=== PATIENT | male | born 1940 | race Caucasian/White ===

== ENCOUNTER → 2025-04-09 | Outpatient (CLI) | payer MEDICARE, SELFPAY ==
--- NOTE | 2025-04-09 14:52 | RAD_ITS ---
PROCEDURE: CHEST PA AND LATERAL 04/09/2025 REASON FOR EXAM: SKIN/ PAIN TECHNIQUE: CHEST PA AND LATERAL COMPARISON: None. FINDINGS: Elevation of the left hemidiaphragm secondary to moderate gaseous distention of the splenic flexure of the colon. Bilateral basilar atelectatic pulmonary changes. There is no demonstrated pleural abnormality. Enlarged cardiac silhouette. Normal mediastinum and ino. Normal visualized pulmonary arteries. Atheromatous plaques of the visualized aortic arch and descending thoracic aorta. Diffuse spondylosis of the visualized thoracic spine. Normal visualized ribs, clavicles. Degenerative joint disease. There is no demonstrated abnormality of the visualized soft tissue structures of the upper abdomen. RAD/Chest PA and Lateral IMPRESSION: Elevation of the left hemidiaphragm secondary to moderate gaseous distention of the splenic flexure of the colon. Bilateral basilar atelectatic pulmonary changes. Reading [facility]
[2025-04-09 18:21] LABS: Absolute Lymphocyte Count 1.51 X10^3/uL (0.83-4.51); Absolute Neutrophil Count 5.4 X10^3/uL (2.0-7.7); Basophil# 0.05 X10^3/uL; Basophil% 0.6 % (0-1); Eosinophil# 0.16 X10^3/uL; Hematocrit 43.5 % (40-54); Hemoglobin 14.3 g/dL (13.0-16.5); Lymphocyte # 1.51 X10^3/ul (0.83-4.51); Lymphocyte % 19.1 % (19-41); Mean Corp Hgb Conc 32.9 g/dL (32-36); Mean Corpuscular Hgb 31.4 pg (27.0-32.0); Mean Corpuscular Volume 95.6 fL (80-94); Mean Platelet Vol. 9.3 fl (6.2-12.0); Monocyte# 0.81 X10^3/uL; Monocyte% 10.2 % (0-10); NRBC Flagged by Analyzer 0 % (0-5); Neutrophil # 5.36 X10^3/uL (2.7-7.7); Neutrophil % 67.7 % (47-70); Platelet Count 414 K/mm3 (150-450); RBC Distribution Width CV 12.9 % (11.6-14.6); RBC Distribution Width SD 45.6 fl (35.1-43.9); Red Blood Count 4.55 M/mm3 (4.6-6.2); White Blood Count 7.9 K/mm3 (4.4-11.0)
[2025-04-09 19:00] LABS: Color, Urine Yellow (Yellow); Glucose, Dipstick Normal (Normal); Ketone-Dipstick Negative (Negative); Leukocyte Esterase-Dipstick 25 /ul (Negative); Nitrite-Dipstick Negative (Negative); Occult Blood-Urine Negative /ul (Negative); Protein-Dipstick 30 mg/dl (Negative); Specific Gravity, Urine 1.025 (1.002-1.030); Urine Bilirubin Dipstick Negative (Negative); Urine Clarity Clear (Clear); Urine Urobilinogen Normal (Normal)
[2025-04-09 19:48] LABS: Erythrocyte Sedimentation Rate 14 mm/hr (0-20)
[2025-04-10 15:07] LABS: ALB/GLOB Ratio 1.6 RATIO (0.9-2.4); AST(SGOT) 25 U/L (<=37); Alanine Aminotransfer ALT/SGPT 21 U/L (<=46); Albumin, Serum 4.3 g/dL (3.4-4.8); Alkaline Phosphatase 69 U/L (40-129); Anion Gap 12 (5-15); BUN 13 mg/dL (4-19); BUN/Creat Ratio 14.9 RATIO (10-20); Calcium,Total 9.9 mg/dL (7.6-11.0); Carbon Dioxide 24.8 mmol/L (21.0-32.0); Chloride 100 mmol/L (98-108); Creatinine, Serum 0.86 mg/dL (0.70-1.20); EST Glomerular Filtration Rate 86 (>60); Globulin 2.7 g/dL (2.2-4.2); Glucose 110 mg/dL (70-99); Potassium 4.5 mmol/L (3.3-5.1); Protein, Total 7.1 g/dL (5.9-8.4); Sodium Level 136 mmol/L (133-145); Total Bilirubin 0.66 mg/dL (0.00-1.30)
[2025-04-10 15:56] LABS: PSA,Total- Diagnostic 0.91 ng/mL (0.00-4.00)
[2025-04-11 16:08] LABS: PROEL- A/G Ratio 1.4 (0.7-1.7); PROEL- Alpha-1 Globulin 0.3 g/dL (0.0-0.4); PROEL- Alpha-2 Globulin 0.8 g/dL (0.4-1.0); PROEL- Beta Globulin 0.9 g/dL (0.7-1.3); PROEL- Gamma Globulin 0.8 g/dL (0.4-1.8); PROEL- Globulin, Total 2.9 g/dL (2.2-3.9); PROEL- TOTAL PROTEIN 6.9 g/dL (6.0-8.5); PROEL-M-Spike Comment: g/dL (Not Observed); V-Zoster IgG (Immunity) Reactive (Non Reactive); V-Zoster Virus Acute IgM 2.17 index (0.00-0.90)
== END | disposition home or self-care (01) ==
LOC: MTLAB 14:50
PROVIDERS: Referring Provider Dermatology Pediatric Dermatology; Visit Provider Dermatology Pediatric Dermatology
DX: L08.9 Local infection of the skin and subcutaneous tissue, unspecified (principal); B02.7 Disseminated zoster
CPT/HCPCS: 36415; 71046; 80053; 81002; 84153; 84165; 85025; 85652; 86787

== ENCOUNTER → 2025-10-02 | Outpatient (CLI) | payer MEDICARE, SELFPAY ==
[2025-10-02 11:09] LABS: Creatinine, Urine (random) 152.00 mg/dL (39.00-259.00); Microalbumin,Random Urine 30.4 mg/L (<20 mg/L)
[2025-10-02 11:25] LABS: AST(SGOT) 20 U/L (<=37); Alanine Aminotransfer ALT/SGPT 17 U/L (<=46); Albumin, Serum 4.5 g/dL (3.4-4.8); Alkaline Phosphatase 55 U/L (40-129); Anion Gap 9 (5-15); BUN 18 mg/dL (4-19); BUN/Creat Ratio 17.5 RATIO (10-20); Calcium,Total 9.9 mg/dL (7.6-11.0); Carbon Dioxide 27.5 mmol/L (21.0-32.0); Chloride 103 mmol/L (98-108); Cholesterol 187 mg/dL (<=200); Globulin 2.3 g/dL (2.2-4.2); Glucose 102 mg/dL (70-99); Low Density Lipoprotein Calc. 103 mg/dL; Potassium 4.6 mmol/L (3.3-5.1); Triglycerides 146 mg/dL; Very Low Density Lipoprotein 29 mg/dL (5-40); cholesterol:hdl ratio screen 3.17
== END | disposition home or self-care (01) ==
LOC: MTLAB 07:51
PROVIDERS: PCP Family Medicine; Referring Provider Family Medicine; Visit Provider Family Medicine
DX: I10 Essential (primary) hypertension (principal)
CPT/HCPCS: 36415; 80053; 80061; 82043; 82570

== ENCOUNTER → 2025-10-15 | Outpatient (CLI) | payer MEDICARE, SELFPAY ==
--- OUTSIDE RECORDS SUMMARY | 2025-10-15 18:11 | XMS RPT_ITS | CCD ---
Author Organization [facility] Care Team Providers [employer] Professional Name Role Phone Free, Text Entry Unavailable Unavailable PhamAbdirahman lazcano Unavailable Unavailable Luba Polk DO Unavailable Haily Clark MD Primary Care Provider [phone] HAILY CLARK Primary Care Unavailable MANAN LLOYD Attending Unavailable Care Physician, No Primary Primary Care Provider Unavailable Sierra POND, Dr. Ortiz Attending Provider Dr. Diana Esquivel MD Referring Provider [phone] Diana Esquivel Referring Unavailable Diana Esquivel Attending Unavailable Care Physician, No Primary Primary Care Unava ilable Medications Current Medications Medication Drug Class(es) Dates Sig (Normalized) Sig (Original) atorvastatin 10 mg oral tablet (2 sources) HMG-CoA Reductase Inhibitor atorvastatin (Lipitor) 10 mg tablet Take by mouth. Active Comment on above: Source=Surescripts, Medication=ATORVASTATIN CALCIUM 10 MG TABS, OriginatingSource=[email or web address], OriginatingProvider=OJ HOU, Duration=90, Date Last Modified/Filled=20-Apr-2022 doxycycline monohydrate 100 mg oral tablet (1 source) Tetracycline-class Drug Start: 04-07-2025 End: 04-14-2025 take 1 tablet by mouth twice daily doxycycline (Adoxa) 100 mg tablet Indications: Cellulitis of left shoulder Take 1 tablet (100 mg) by mouth 2 times a day for 7 days. Take with a full glass of water and do not lie down for at least 30 minutes after 14 tablet 04/07/2025 04/14/2025 Active ibuprofen 800 mg oral tablet (1 source) Nonsteroidal Anti-inflammatory Drug Start: 04-21-2022 End: 04-30-2022 take 1 tablet by mouth twice daily at mealtime IBU 800 mg oral tablet ; 1 tab(s) orally 2 times a day Quantity: 20 Refills: 0 Ordered: 21-Apr-2022 Abdirahman Pham Start: 21-Apr-2022 End: 30-Apr-2022 Generic Substitution Allowed Comments: Do not take this drug if you are .It is very important that you take or use this exactly as directed. Do not skip doses or discontinue unless directed by your doctor.May cause drowsiness or dizziness.Obtain medical advice before taking any non-prescription drugs as some may affect the action of this medication.Take with food or milk. Comment on above: Do not take this enoch g if you are .It is very important that you take or use this exactly as directed. Do not skip doses or discontinue unless directed by your doctor.May cause drowsiness or dizziness.Obtain medical advice before taking any non-prescription drugs as some may affect the action of this medication.Take with food or milk. valACYclovir 1000 mg oral tablet (1 source) Herpesvirus Nucleoside Analog DNA Polymerase Inhibitor, Herpes Simplex Virus Nucleoside Analog DNA Polymerase Inhibitor, Herpes Zoster Virus Nucleoside Analog DNA Polymerase Inhibitor Start: 04-07-2025 End: 04-17-2025 take 1 tablet by mouth twice daily valACYclovir (Valtrex) 1 gram tablet Indications: Herpes zoster with other complication Take 1 tablet (1,000 mg) by mouth 2 times a day for 10 days. 20 tablet 04/07/2025 04/17/2025 Active Problems Problem Classification Problem Date Documented Da te Episodic/Chronic Nonspecific chest pain (2 sources) Chest pain 04-21-2022 Episodic Comment on above: CHEST PAIN Pleurisy; pneumothorax; pulmonary collapse (2 sources) Pleurisy; Translations: [Pleurisy without mention of effusion or current tuberculosis] 04-21-2022 Episodic Skin and subcutaneous tissue infections (4 sources) Cellulitis of left shoulder; Translations: [Cellulitis of left upper limb] Onset: 04-07-2025 04-07-2025 Episodic Viral infection (3 sources) Herpes zoster; Translations: [Zoster with other complications] Onset: 04-07-2025 04-07-2025 Episodic Results Test Name Value Interpretation Reference Range Facility [id number] 04-11-2025 V ZOSTER IgG Reactive Normal Non Reactive [facility] Comment on above: Result Comment: Pl ease note reference interval change A Reactive result is considered evidence of immunity to VZV. Reactive indicates that VZV IgG was detected consistent with previous infection and/or vaccination. A Non Reactive result indicates that VZV IgG was not detected suggesting that immunity has not been acquired. Performed By: #### L 100.0100, L500.4050, L400.2011, L3100.3450, L101.9900, L501.9940, L3400.0005, L3300.9950 #### [facility] [address] [place], [address] Protein Electroph, Son 04-11 Albumin [Mass/Vol] 4.0 g/dL Normal 2.9-4.4 [facility] Comment on above: Performed By: #### L 100.0100, L500.4050, L400.2010, L3100.3450, L101.9900, L501.9940, L3400.0005, L3300.9950 #### [facility] [address] [place], [address] Albumin/Globulin [Mass ratio] 1.4 {ratio} Normal 0.7-1.7 [facility] Comment on above: Performed By: #### L 100.0100, L500.4050, L400.2011, L3100.3450, L101.9900, L501.9940, L3400.0005, L3300.9950 #### [facility] [address] [place], [address] ALPHA-1 GLOBUL 0.3 g/dL Normal 0.0-0.4 [facility] Comment on above: Performed By: #### L 100.0100, L500.4050, L400.2011, L3100.3450, L101.9900, L501.9940, L3400.0005, L3300.9950 #### [facility] [address] [place], [address] ALPHA-2 GLOBUL 0.8 g/dL Normal 0.4-1.0 [facility] Comment on above: Performed By: #### L 100.0100, L500.4050, L400.2011, L3100.3450, L101.9900, L501.9940, L3400.0005, L3300.9950 #### [facility] [address] [place], [address] BETA GLOBULIN 0.9 g/dL Normal 0.7-1.3 [facility] Comment on above: Performed By: #### L 100.0100, L500.4050, L400.2010, L3100.3450, L101.9900, L501.9940, L3400.0005, L3300.9950 #### [facility] [address] [place], [address] GAMMA GLOBULIN 0.8 g/dL Normal 0.4-1.8 [facility] Comment on above: Performed By: #### L 100.0100, L500.4050, L4.2010, L3100.3450, L101.9900, L501.9940, L3400.0005, L3300.9950 #### [facility] [address] [place], [address] Globulin (S) [Mass/Vol] 2.9 g/dL Normal 2.2-3.9 [facility] Comment on above: Performed By: #### L 100.0100, L500.4050, L400.2010, L3100.3450, L101.9900, L501.9940, L3400.0005, L3300.9950 #### [facility] [address] [place], [address] INTERPRETATION Comment Normal . [facility] Comment on above: Result Comment: Prot ein electrophoresis scan will follow via computer, mail, or tracer bullet charging machine operator delivery. Performed By: #### L 100.0100, L500.4050, L400.2010, L3100.3450, L101.9900, L501.9940, L3400.0005, L3300.9950 #### [facility] [address] [place], [address] M-SPIKE Comment: Normal Not Observed [facility] Comment on above: Result Comment: SPE shows asymmetrical gamma. Performed By: #### L 100.0100, L500.4050, L400.2011, L3100.3450, L101.9900, L501.9940, L3400.0005, L3300.9950 #### [facility] [address] [place], [address] NOTE: Comment Normal . [facility] Comment on above: Result Comment: Bishop t band in gamma region suspicious for monoclonal immunoglobulin. This band may represent a benign spike as seen in older people or could be a paraprotein as seen in Multiple Myeloma, Waldenstrom's Macroglobulinemia or Lymphoma. Depending on clinical circumstances, further diagnostic studies may include serum immunofixation or serum free light chain quantitation. Performed By: #### L 100.0100, L500.4050, L400.2010, L3100.3450, L101.9900, L501.9940, L3400.0005, L3300.9950 #### [facility] [address] [place], [address] Protein [Mass/Vol] 6.9 g/dL Normal 6.0-8.5 [facility] Comment on above: Performed By: #### L 100.0100, L500.4050, L400.2010, L3100.3450, L101.9900, L501.9940, L3400.0005, L3300.9950 #### [facility] [address] [place], [address] V-Zoster Virus Acute IgMon 0 - V ZOSTER AB,IgM 2.17 index High 0.00-0.90 [facility] Comment on above: Result Comment: Nega tive <0.91 Borderline 0.91 - 1.09 Positive >1.09 Performed at: [address] [id number] Car Builder: Cleve Iglesias PhD, Phone: [phone] Performed By: #### L 100.0100, L500.4050, L400.2010, L3100.3450, L101.9900, L501.9940, L3400.0005, L3300.9950 #### [facility] [address] [place], [address] Comprehensive Metabolic Prof [facility] 04-10-2025 Albumin [Mass/Vol] 4.3 g/dL Normal 3.4-4.8 [facility] Comment on above: Performed By: #### L 100.0100, L500.4050, L400.2010, L3100.3450, L101.9900, L501.9940, L3400.0005, L3300.9950 #### [facility] [address] [place], [place], [id number] ([phone] Albumin/Globulin [Mass ratio] 1.6 {ratio} Normal 0.9-2.4 [facility] Comment on above: Performed By: #### L 100.0100, L500.4050, L400.2010, L3100.3450, L101.9900, L501.9940, L3400.0005, L3300.9950 #### [facility] [address] [place], [place], [id number] [phone] PHOS 69 U/L Normal 40-129 [facility] Comment on above: Performed By: #### L 100.0100, L500.4050, L400.2010, L3100.3450, L101.9900, L501.9940, L3400.0005, L3300.9950 #### [facility] [address] [place], [address] ALT [Catalytic activity/Vol] 21 U/L Normal <=46 [facility] Comment on above: Performed By: #### L 100.0100, L500.4050, L400.2010, L3100.3450, L101.9900, L501.9940, L3400.0005, L3300.9950 #### [facility] [address] [place], [address] AST [Catalytic activity/Vol] 25 U/L Normal <=37 [facility] Comment on above: Performed By: #### L 100.0100, L500.4050, L400.2010, L3100.3450, L101.9900, L501.9940, L3400.0005, L3300.9950 #### [facility] [address] [place], [address] Bilirubin [Mass/Vol] 0.66 mg/dL Normal 0.00-1.30 [facility] Comment on above: Performed By: #### L 100.0100, L500.4050, L400.2010, L3100.3450, L101.9900, L501.9940, L3400.0005, L3300.9950 #### [facility] [address] [place], [address] BUN/CRE 14.9 RATIO Normal 10-20 [facility] Comment on above: Performed By: #### L 100.0100, L500.4050, L400.2010, L3100.3450, L101.9900, L501.9940, L3400.0005, L3300.9950 #### [facility] [address] [place], [address] Calcium [Mass/Vol] 9.9 mg/dL Normal 7.6-11.0 [facility] Comment on above: Performed By: #### L 100.0100, L500.4050, L400.2010, L3100.3450, L101.9900, L501.9940, L3400.0005, L3300.9950 #### [facility] [address] [place], [address] Chloride [Moles/Vol] 100 mmol/L Normal 98-108 [facility] Comment on above: Performed By: #### L 100.0100, L500.4050, L400.2011, L3100.3450, L101.9900, L501.9940, L3400.0005, L3300.9950 #### [facility] [address] [place], [address] CO2 [Moles/Vol] 24.8 mmol/L Normal 21.0-32.0 [facility] Comment on above: Performed By: #### L 100.0100, L500.4050, L400.2010, L3100.3450, L101.9900, L501.9940, L3400.0005, L3300.9950 #### [facility] [address] [place], [address] Creatinine [Mass/Vol] 0.86 mg/dL Normal 0.70-1.20 [facility] Comment on above: Performed By: #### L 100.0100, L500.4050, L400.2010, L3100.3450, L101.9900, L501.9940, L3400.0005, L3300.9950 #### [facility] [address] [place], [address] GAP 12 Normal 5-15 [facility] Comment on above: Performed By: #### L 100.0100, L500.4050, L400.2010, L3100.3450, L101.9900, L501.9940, L3400.0005, L3300.9950 #### [facility] [address] [place], [address] GFR/1.73 sq M.predicted among non-blacks MDRD (S/P/Bld) [Vol rate/Area] 86 mL/min/{1.73_m2} Normal >60 [facility] Comment on above: Result Comment: mL/m in/1.73m2 CKD-EPI Creatinine Equation (2020) Performed By: #### L 100.0100, L500.4050, L400.2011, L3100.3450, L101.9900, L501.9940, L3400.0005, L3300.9950 #### [facility] [address] [place], [address] Globulin (S) [Mass/Vol] 2.7 g/dL Normal 2.2-4.2 [facility] Comment on above: Performed By: #### L 100.0100, L500.4050, L400.2010, L3100.3450, L101.9900, L501.9940, L3400.0005, L3300.9950 #### [facility] [address] [place], [address] Glucose [Mass/Vol] 110 mg/dL High 70-99 [facility] Comment on above: Performed By: #### L 100.0100, L500.4050, L400.2010, L3100.3450, L101.9900, L501.9940, L3400.0005, L3300.9950 #### [facility] [address] [place], [address] Potassium [Moles/Vol] 4.5 mmol/L Normal 3.3-5.1 [facility] Comment on above: Performed By: #### L 100.0100, L500.4050, L400.2010, L3100.3450, L101.9900, L501.9940, L3400.0005, L3300.9950 #### [facility] [address] [place], [address] Sodium [Moles/Vol] 136 mmol/L Normal 133-145 [facility] Comment on above: Performed By: #### L 100.0100, L500.4050, L400.2010, L3100.3450, L101.9900, L501.9940, L3400.0005, L3300.9950 #### [facility] [address] [place], [address] T PROT 7.1 g/dL Normal 5.9-8.4 [facility] Comment on above: Performed By: #### L 100.0100, L500.4050, L400.2010, L3100.3450, L101.9900, L501.9940, L3400.0005, L3300.9950 #### [facility] [address] [place], [address] Urea nitrogen [Mass/Vol] 13 mg/dL Normal 4-19 [facility] Comment on above: Performed By: #### L 100.0100, L500.4050, L400.2010, L3100.3450, L101.9900, L501.9940, L3400.0005, L3300.9950 #### [facility] [address] [place], [address] PSA,Total- Diagnosticon 03-25 PSA, DIAGNOSTIC 0.91 ng/mL Normal 0.00-4.00 [facility] Comment on above: Result Comment: This test was performed using the [employer] tPSA method. Measured values of a patient??sample can vary depending on the testing procedure used. PSA values determined on patient samples by different testing procedures cannot be used interchangeably. If there is a change in PSA assays while monitoring therapy, sequential testing should be performed to confirm baseline values. Performed By: #### L 100.0100, L500.4050, L400.2010, L3100.3450, L101.9900, L501.9940, L3400.0005, L3300.9950 #### [facility] [address] [place], [address] Absolute lymphocyte countOrd ered By: Diana Esquivel on 04-09-2025 Lymphocytes Auto (Unsp spec) [#/Vol] 1.51 10*3/uL 0.83-4.51 [facility] Absolute neutrophil countOrd ered By: Diana Esquivel on 04-09-2025 Neutrophils (Bld) [#/Vol] 5.4 10*3/uL 2.0-7.7 [facility] Albumin Elph [Mass/Vol]Order ed By: Dianasantos Esquivel on 04-09-2025 Albumin [Mass/Vol] 4.0 g/dL 2.9-4.4 [facility] Anion gap in Serum or Plasma Ordered By: Diana Esquivel on 04-09-2025 Anion gap [Moles/Vol] 12 mmol/L 5-15 [facility] Automated lymphocyte count a s percentage of total leukocytesOrdered By: Diana Esquivel on 04-09-2025 Lymphocytes/100 WBC Auto (Unsp spec) 19.1 % 19- [facility] BUN/creatinine ratioOrdered By: Dianasantos Esquivel on 04-09-2025 Urea nitrogen/Creatinine [Mass ratio] 14.9 mg/mg 10- [facility] Basophil percentageOrdered B y: Diana Esquivel on 04-09-2025 Basophils/100 WBC (Bld) 0.6 % 0-1 [facility] Bilirubin Test strip Ql (U)O rdered By: Diana Esquivel on 04-09-2025 Bilirubin Ql (U) Negative Negative [facility] Bilirubin, totalOrdered By: Diana Esquivel on 04-09-2025 Bilirubin [Mass/Vol] 0.66 mg/dL 0.00-1.30 [facility] CBC W/Diff, Automatedon 03-25 Absolute Lymph 1.51 X10 3/uL Normal 0.83-4.51 [facility] Comment on above: Performed By: #### L 100.0100, L500.4050, L4.2010, L3100.3450, L101.9900, L501.9940, L3400.0005, L3300.9950 #### [facility] [address] [place] [address], [address] Absolute Neut 5.4 X10 3/uL Normal 2.0-7.7 [facility] Comment on above: Performed By: #### L 100.0100, L500.4050, L400.2010, L3100.3450, L101.9900, L501.9940, L3400.0005, L3300.9950 #### [facility] [address] [place], [address] Basophils/100 WBC (Bld) 0.6 % Normal 0-1 [facility] Comment on above: Performed By: #### L 100.0100, L500.4050, L400.2011, L3100.3450, L101.9900, L501.9940, L3400.0005, L3300.9950 #### [facility] [address] [place], [address] Eosinophils/100 WBC (Bld) 2.0 % Normal 0-5 [facility] Comment on above: Performed By: #### L 100.0100, L500.4050, L400.2010, L3100.3450, L101.9900, L501.9940, L3400.0005, L3300.9950 #### [facility] [address] [place], [address] Erythrocyte distribution width (RBC) [Ratio] 12.9 % Normal 11.6-14.6 [facility] Comment on above: Performed By: #### L 100.0100, L500.4050, L400.2010, L3100.3450, L101.9900, L501.9940, L3400.0005, L3300.9950 #### [facility] [address] [place], [address] Hematocrit (Bld) [Volume fraction] 43.5 % Normal 40-54 [facility] Comment on above: Performed By: #### L 100.0100, L500.4050, L400.2010, L3100.3450, L101.9900, L501.9940, L3400.0005, L3300.9950 #### [facility] [address] [place], [address] Hemoglobin (Bld) [Mass/Vol] 14.3 g/dL Normal 13.0-16.5 [facility] Comment on above: Performed By: #### L 100.0100, L500.4050, L400.2011, L3100.3450, L101.9900, L501.9940, L3400.0005, L3300.9950 #### [facility] [address] [place], [address] IG% 0.400 Normal 0.0-0.9 [facility] Comment on above: Result Comment: IG% - Immature Granulocytes (promyelocytes, myelocytes and metamyelocytes) > 1% indicates that a LEFT SHIFT is Present. Performed By: #### L 100.0100, L500.4050, L400.2010, L3100.3450, L101.9900, L501.9940, L3400.0005, L3300.9950 #### [facility] [address] [facility] [place], [address] Lymphocytes/100 WBC (Bld) 19.1 % Normal 19-41 [facility] Comment on above: Performed By: #### L 100.0100, L500.4050, L400.2010, L3100.3450, L101.9900, L501.9940, L3400.0005, L3300.9950 #### [facility] [address] [place], [address] MCH (RBC) [Entitic mass] 31.4 pg Normal 27.0-32.0 [facility] Comment on above: Performed By: #### L 100.0100, L500.4050, L400.2010, L3100.3450, L101.9900, L501.9940, L3400.0005, L3300.9950 #### [facility] [address] [place], [address] MCHC (RBC) [Mass/Vol] 32.9 g/dL Normal 32-36 [facility] Comment on above: Performed By: #### L 100.0100, L500.4050, L400.2010, L3100.3450, L101.9900, L501.9940, L3400.0005, L3300.9950 #### [facility] [address] [place], [address] MCV (RBC) [Entitic vol] 95.6 fL High 80-94 [facility] Comment on above: Performed By: #### L 100.0100, L500.4050, L400.2011, L3100.3450, L101.9900, L501.9940, L3400.0005, L3300.9950 #### [facility] [address] [place], [address] Monocytes/100 WBC (Bld) 10.2 % High 0-10 [facility] Comment on above: Performed By: #### L 100.0100, L500.4050, L400.2010, L3100.3450, L101.9900, L501.9940, L3400.0005, L3300.9950 #### [facility] [address] [place], [address] Neutrophils/100 WBC (Bld) 67.7 % Normal 47-70 [facility] Comment on above: Performed By: #### L 100.0100, L500.4050, L400.2010, L3100.3450, L101.9900, L501.9940, L3400.0005, L3300.9950 #### [facility] [address] [place], [address] Nucleated RBC (Bld) [#/Vol] 0 10*3/uL Normal 0-5 [facility] Comment on above: Performed By: #### L 100.0100, L500.4050, L400.2010, L3100.3450, L101.9900, L501.9940, L3400.0005, L3300.9950 #### [facility] [address] [place], [address] Platelet mean volume (Bld) [Entitic vol] 9.3 fL Normal 6.2-12.0 [facility] Comment on above: Performed By: #### L 100.0100, L500.4050, L400.2011, L3100.3450, L101.9900, L501.9940, L3400.0005, L3300.9950 #### [facility] [address] [place], [address] Platelets (Bld) [#/Vol] 414 10*3/uL Normal 150-450 [facility] Comment on above: Performed By: #### L 100.0100, L500.4050, L400.2010, L3100.3450, L101.9900, L501.9940, L3400.0005, L3300.9950 #### [facility] [address] [place], [address] RBC (Bld) [#/Vol] 4.55 10*6/uL Low 4.6-6.2 [facility] Comment on above: Performed By: #### L 100.0100, L500.4050, L400.2010, L3100.3450, L101.9900, L501.9940, L3400.0005, L3300.9950 #### [facility] [address] [place], [address] RDW SD 45.6 fl High 35.1-43.9 [facility] Comment on above: Performed By: #### L 100.0100, L500.4050, L400.2010, L3100.3450, L101.9900, L501.9940, L3400.0005, L3300.9950 #### [facility] [address] [place], [address] WBC (Bld) [#/Vol] 7.9 10*3/uL Normal 4.4-11.0 [facility] Comment on above: Performed By: #### L 100.0100, L500.4050, L400.2010, L3100.3450, L101.9900, L501.9940, L3400.0005, L3300.9950 #### [facility] [address] [place], [address] Carbon dioxide, total [Moles /volume] in Central venous bloodOrdered By: Diana Esquivel on 04-09-2025 CO2 [Moles/Vol] 24.8 mmol/L 21.0-32.0 [facility] Chest PA and Lateralon 04-09 Chest PA and Lateral [facility] Services [address] [place] [address] Chest PA and Lateral MR#: [id number] Acct: [id number] Name: MICHEL FRIAS Rep #: [id number] : 1940 M 85 From: Brendan garrett MD PCP: Care Physician,No Primary Status: REG CLI Study: Chest PA and Lateral Date of Exam: 04/09/25 Exam# [id number] Ordering Dr: Diana Esquivel MD PROCEDURE: CHEST PA AND LATERAL 04/09/2025 REASON FOR EXAM: SKIN/ PAIN TECHNIQUE: CHEST PA AND LATERAL COMPARISON: None. FINDINGS: Elevation of the left hemidiaphragm secondary to moderate gaseous distention of the splenic flexure of the colon. Bilateral basilar atelectatic pulmonary changes. There is no demonstrated pleural abnormality. Enlarged cardiac silhouette. Normal mediastinum and ino. Normal visualized pulmonary arteries. Atheromatous plaques of the visualized aortic arch and descending thoracic aorta. Diffuse spondylosis of the visualized thoracic spine. Normal visualized ribs, clavicles. Degenerative joint disease. There is no demonstrated abnormality of the visualized soft tissue structures of the upper abdomen. RAD/Chest PA and Lateral IMPRESSION: Elevation of the left hemidiaphragm secondary to moderate gaseous distention of the splenic flexure of the colon. Bilateral basilar atelectatic pulmonary changes. Reading Location: [place] [address] CC: Dr. Diana Esquivel MD; No Primary Care Physician Building Construction Estimator: Signed Normal [facility] Chloride assayOrdered By: Edson Esquivel on 04-09-2025 Chloride [Moles/Vol] 100 mmol/L 98-108 [facility] Eosinophil percentageOrdered By: Diana Esquivel on 04-09-2025 Eosinophils/100 WBC (Bld) 2.0 % 0-5 [facility] Erythrocyte Sed Rateon 04-09 SED RATE 14 mm/hr Normal 0-20 [facility] Comment on above: Performed By: #### L 100.0100, L500.4050, L400.2011, L3100.3450, L101.9900, L501.9940, L3400.0005, L3300.9950 #### [facility] [address] [place], [place], [id number] Erythrocyte distribution wid th ratioOrdered By: Diana Esquivel on 04-09-2025 Erythrocyte distribution width (RBC) [Ratio] 12.9 % 11.6-14.6 [facility] Erythrocyte distribution wid th standard deviationOrdered By: Diana Esquivel on 04-09-2025 Erythrocyte distribution width (RBC) [Ratio] 45.6 fl High 35.1-43.9 [facility] Erythrocyte sedimentation ra teOrdered By: Diana Esquivel on 04-09-2025 ESR (Bld) [Velocity] 14 mm/h 0-20 [facility] Glomerular filtration rate ( GFR) estimation/1.73 sq m using serum, plasma, or whole bOrdered By: Diana Esquivel on 04-09-2025 GFR/1.73 sq M.predicted among non-blacks MDRD (S/P/Bld) [Vol rate/Area] 86 mL/min/{1.73_m2} >60 [facility] Comment on above: mL/min/1.73m2 CKD-EP I Creatinine Equation (2020) Hematocrit Auto (Bld) [Volum e fraction]Ordered By: Diana Esquivel on 04-09-2025 Hematocrit (Bld) [Volume fraction] 43.5 % 40-54 [facility] Hemoglobin measurementOrdere d By: Diana Esquivel on 04-09-2025 Hemoglobin (Bld) [Mass/Vol] 14.3 g/dL 13.0-16.5 [facility] Immature granulocytes/100 WB C Auto (Bld)Ordered By: Diana Esquivel on 04-09-2025 Immature granulocytes/100 WBC (Bld) 0.400 % 0.0-0.9 [facility] Comment on above: IG% - Immature Granu locytes (promyelocytes, myelocytes and metamyelocytes) > 1% indicates that a LEFT SHIFT is Present. Ketones Test strip Ql (U)Ord ered By: Diana Esquivel on 04-09-2025 Ketones Ql (U) Negative Negative [facility] - Chemistry and C hemistry - challengeOrdered By: Diana Esquivel on 04-09-2025 AST [Catalytic activity/Vol] 25 U/L <38 [facility] MCV (mean corpuscular volume ) determinationOrdered By: Diana Esquivel on 04-09-2025 MCV (RBC) [Entitic vol] 95.6 fL High 80-94 [facility] Mean corpuscular hemoglobin (MCH) determinationOrdered By: Diana Esquivel on 04-09-2025 MCH (RBC) [Entitic mass] 31.4 pg 27.0-32.0 [facility] Mean corpuscular hemoglobin concentration (MCHC) determinationOrdered By: Diana Esquivel on 04-09-2025 MCHC (RBC) [Mass/Vol] 32.9 g/dL 32-36 [facility] Mean platelet volume determi nationOrdered By: Diana Esquivel on 04-09-2025 Platelet mean volume (Bld) [Entitic vol] 9.3 fL 6.2-12.0 [facility] Monocyte percentageOrdered B y: Diana Esquivel on 04-09-2025 Monocytes/100 WBC (Bld) 10.2 % High 0-10 [facility] Neutrophil percentageOrdered By: Diana Esquivel on 04-09-2025 Neutrophils/100 WBC (Bld) 67.7 % 47-70 [facility] No Panel InformationOrdered By: Diana Esquivel on 04-09-2025 Addendum Document Comment . [facility] Comment on above: Faint band in gamma region suspicious for monoclonalimmunoglobulin. This band may represent a benign spike asseen in older people or could be a paraprotein as seen inMultiple Myeloma, Waldenstrom's Macroglobulinemia orLymphoma. Depending on clinical circumstances, furtherdiagnostic studies may include serum immunofixation orserum free light chain quantitation. Nucleated red blood cell per centageOrdered By: Diana Esquivel on 04-09-2025 Nucleated RBC/100 WBC (Bld) [Ratio] 0 % 0-5 [facility] Platelet countOrdered By: Edson richard Esquivel on 04-09-2025 Platelets (Bld) [#/Vol] 414 10*3/uL 150-450 [facility] Potassium measurement (mass/ volume)Ordered By: Diana Esquivel on 04-09-2025 Potassium (Unsp spec) [Mass/Vol] 4.5 mmol/L 3.3-5.1 [facility] Protein Fractions Elph [Inte rp]Ordered By: Diana Esquivel on 04-09-2025 Protein Fractions [Interp] Comment . [facility] Comment on above: Protein electrophore sis scan will follow via computer,mail, or tracer bullet charging machine operator delivery. Protein Test strip Ql (U)Ord ered By: Diana Esquivel on 04-09-2025 Protein Ql (U) 30 mg/dl High Negative [facility] RBC Auto (Bld) [#/Vol]Ordere d By: Diana Esquivel on 04-09-2025 RBC (Bld) [#/Vol] 4.55 10*6/uL Low 4.6-6.2 [facility] Serum Varicella zoster virus IgM antibody assay by immunoassay (units/volume)Ordered By: Diana Esquivel on 04-09-2025 VZV IgM IA Qn (S) 2.17 index High 0.00-0.90 [facility] Comment on above: Negative <0.91 Borde rline 0.91 - 1.09 Positive >1.09Performed at: [email or web address] [id number] Director: Cleve Iglesias PhD, Phone: [phone] Serum albumin to globulin ra kathleen by protein electrophoresisOrdered By: Diana Esquivel on 04-09-2025 Albumin/Globulin Elph [Mass ratio] 1.4 0.7-1.7 [facility] Serum creatinine measurement (mass/volume)Ordered By: Diana Esquivel on 04-09-2025 Creatinine [Mass/Vol] 0.86 mg/dL 0.70-1.20 [facility] Serum globulin measurementOr dered By: Diana Esquivel on 04-09-2025 Globulin (S) [Mass/Vol] 2.7 g/dL 2.2-4.2 [facility] Serum globulin measurement ( mass/volume)Ordered By: Diana Esquivel on 04-09-2025 Globulin (S) [Mass/Vol] 2.9 g/dL 2.2-3.9 [facility] Serum glucose measurement (m ass/volume)Ordered By: Diana Esquivel on 04-09-2025 Glucose [Mass/Vol] 110 mg/dL High 70-99 [facility] Serum or plasma alanine lazaro otransferase (ALT) measurementOrdered By: Diana Esquivel on 04-09-2025 ALT [Catalytic activity/Vol] 21 U/L <47 [facility] Serum or plasma albumin keya urement (mass/volume)Ordered By: Diana Esquivel on 04-09-2025 Albumin [Mass/Vol] 4.3 g/dL 3.4-4.8 [facility] Serum or plasma albumin/glob ulin mass ratioOrdered By: Diana Esquivel on 04-09-2025 Albumin/Globulin [Mass ratio] 1.6 {ratio} 0.9-2.4 [facility] Serum or plasma alkaline hudson sphatase measurementOrdered By: Diana Esquivel on 04-09-2025 ALP [Catalytic activity/Vol] 69 U/L 40-129 [facility] Serum or plasma beta globuli n measurement by electrophoresis (mass/volume)Ordered By: Diana Esquivel on 04-09-2025 Beta globulin Elph [Mass/Vol] 0.9 g/dL 0.7-1.3 [facility] Serum or plasma calcium keya urement (mass/volume)Ordered By: Diana Esquivel on 04-09-2025 Calcium [Mass/Vol] 9.9 mg/dL 7.6-11.0 [facility] Serum or plasma protein keya urement (mass/volume)Ordered By: Diana Esquivel on 04-09-2025 Protein [Mass/Vol] 6.9 g/dL 6.0-8.5 [facility] Serum or plasma protein mono clonal measurement by electrophoresis (mass/volume)Ordered By: Dianasantos Esquivel on 04-09-2025 Protein.monoclonal Elph [Mass/Vol] Comment: g/dL Not Observed [facility] Comment on above: SPE shows asymmetric al gamma. Serum or plasma urea nitroge n measurement (mass/volume)Ordered By: Dianasantos Esquivel on 04-09-2025 Urea nitrogen [Mass/Vol] 13 mg/dL 4-19 [facility] Sodium levelOrdered By: Iain Esquivel on 04-09-2025 Sodium [Moles/Vol] 136 mmol/L 133-145 [facility] Total proteinOrdered By: Priti santos Esquivel on 04-09-2025 Protein [Mass/Vol] 7.1 g/dL 5.9-8.4 [facility] Urinalysis, Routine (Dipstic k)on 04-09-2025 BILIRUBIN URINE Negative Normal Negative [facility] Comment on above: Order Comment: CLEAN CATCH Performed By: #### L 100.0100, L500.4050, L400.2010, L3100.3450, L101.9900, L501.9940, L3400.0005, L3300.9950 #### [facility] [address] [place], [address] GLUCOSE, UR Normal Normal Normal [facility] Comment on above: Order Comment: CLEAN CATCH Performed By: #### L 100.0100, L500.4050, L400.2010, L3100.3450, L101.9900, L501.9940, L3400.0005, L3300.9950 #### [facility] [address] [place], [address] KETONE UR Negative Normal Negative [facility] Comment on above: Order Comment: CLEAN CATCH Performed By: #### L 100.0100, L500.4050, L400.2010, L3100.3450, L101.9900, L501.9940, L3400.0005, L3300.9950 #### [facility] [address] [place], [address] LEUK ESTERASE 25 /ul Abnormal Negative [facility] Comment on above: Order Comment: CLEAN CATCH Performed By: #### L 100.0100, L500.4050, L400.2010, L3100.3450, L101.9900, L501.9940, L3400.0005, L3300.9950 #### [facility] [address] [place], [place], [id number] OCCULT BLOOD-UR Negative Normal Negative [facility] Comment on above: Order Comment: CLEAN CATCH Performed By: #### L 100.0100, L500.4050, L400.2010, L3100.3450, L101.9900, L501.9940, L3400.0005, L3300.9950 #### [facility] [address] [place], [place], [id number] pH UR 5.0 Normal 5.0 - 8.0 [facility] Comment on above: Order Comment: CLEAN CATCH Performed By: #### L 100.0100, L500.4050, L400.2010, L3100.3450, L101.9900, L501.9940, L3400.0005, L3300.9950 #### [facility] [address] [place], [place], [id number] PROT DIPSTX 30 mg/dl Abnormal Negative [facility] Comment on above: Order Comment: CLEAN CATCH Performed By: #### L 100.0100, L500.4050, L400.2010, L3100.3450, L101.9900, L501.9940, L3400.0005, L3300.9950 #### [facility] [address] [place], [address] SP.GR. DIPSTX 1.025 Normal 1.002-1.030 [facility] Comment on above: Order Comment: CLEAN CATCH Performed By: #### L 100.0100, L500.4050, L400.2010, L3100.3450, L101.9900, L501.9940, L3400.0005, L3300.9950 #### [facility] [address] [place], [place], [id number] UROBILI Normal Normal Normal [facility] Comment on above: Order Comment: CLEAN CATCH Performed By: #### L 100.0100, L500.4050, L400.2011, L3100.3450, L101.9900, L501.9940, L3400.0005, L3300.9950 #### [facility] [address] [place], [address] Urine clarityOrdered By: Priti Esquivel on 04-09-2025 Clarity (U) Clear Normal Clear [facility] Comment on above: Order Comment: CLEAN CATCH Performed By: #### L 100.0100, L500.4050, L400.2011, L3100.3450, L101.9900, L501.9940, L3400.0005, L3300.9950 #### [facility] [address] [place], [address] Urine color determinationOrd ered By: Diana Esquivel on 04-09-2025 Color (U) Yellow Normal Yellow [facility] Comment on above: Order Comment: CLEAN CATCH Performed By: #### L 100.0100, L500.4050, L400.2011, L3100.3450, L101.9900, L501.9940, L3400.0005, L3300.9950 #### [facility] [address] [facility] [place], [address] Urine glucose detectionOrder ed By: Diana Esquivel on 04-09-2025 Glucose Ql (U) Normal mg/dl Normal [facility] Urine leukocyte esterase det ection by dipstickOrdered By: Diana Esquivel on 04-09-2025 Leukocyte esterase Test strip Ql (U) 25 /ul High Negative [facility] Urine nitrite test by dipsti ckOrdered By: Diana Esquivel on 04-09-2025 Nitrite Ql (U) Negative Normal Negative [facility] Comment on above: Order Comment: CLEAN CATCH Performed By: #### L 100.0100, L500.4050, L400.2011, L3100.3450, L101.9900, L501.9940, L3400.0005, L3300.9950 #### [facility] [address] [place], [address] Urine pHOrdered By: Diana alaniz on 04-09-2025 pH (U) 5.0 [pH] 5.0 - 8.0 [facility] Urine specific gravity measu rementOrdered By: Dianasantos Esquivel on 04-09-2025 Specific gravity (U) [Rel density] 1.025 1.002-1.030 [facility] Urine urobilinogen measureme ntOrdered By: Diana Esquivel on 04-09-2025 Urobilinogen Ql (U) Normal mg/dl Normal [facility] White blood cell (WBC) count Ordered By: Diana Esquivel on 04-09-2025 WBC (Bld) [#/Vol] 7.9 10*3/uL 4.4-11.0 [facility] BNPon 04-21-2022 Natriuretic peptide B (Bld) [Mass/Vol] 37 pg/mL Normal 0 - 99 [facility] Comment on above: Result Comment: . <1 00 pg/mL - Heart failure unlikely 100-299 pg/mL - Intermediate probability of acute heart . failure exacerbation. Correlate with clinical . context and patient history. >=300 pg/mL - Heart Failure likely. Correlate with clinical . context and patient history. BNP testing is performed using different testing methodology at [facility] than at other [facility]. Direct result comparisons should only be made within the same method. Performed By: #### B NP2 #### [address] [address] CBC AND DIFFERENTIALon 04-21 Basophils (Bld) [#/Vol] 0.10 10*3/uL Normal 0.00 - 0.1 0 [facility] Comment on above: Performed By: #### C BCDF #### [address] [address] Basophils/100 WBC (Bld) 0.7 % Normal 0.0 - 2.0 [facility] Comment on above: Performed By: #### C BCDF #### [address] [address] Eosinophils (Bld) [#/Vol] 0.10 10*3/uL Normal 0.00 - 0 .40 [facility] Comment on above: Performed By: #### C BCDF #### [address] [address] Eosinophils/100 WBC (Bld) 0.7 % Normal 0.0 - 6.0 [facility] Comment on above: Performed By: #### C BCDF #### [address] [address] Erythrocyte distribution width (RBC) [Ratio] 13.1 % Normal 11.5 - 14.5 [facility] Comment on above: Performed By: #### C BCDF #### [address] [address] Hematocrit (Bld) [Volume fraction] 40.3 % Low 41.0 - 52.0 [facility] Comment on above: Performed By: #### C BCDF #### [address] [address] Hemoglobin (Bld) [Mass/Vol] 13.9 g/dL Normal 13.5 - 17.5 [facility] Comment on above: Performed By: #### C BCDF #### [address] [address] Lymphocytes (Bld) [#/Vol] 1.00 10*3/uL Normal 0.80 - 3 .00 [facility] Comment on above: Performed By: #### C BCDF #### [address] [address] Lymphocytes/100 WBC (Bld) 12.1 % Normal 13.0 - 44. 0 [facility] Comment on above: Performed By: #### C BCDF #### [address] [address] MCHC (RBC) [Mass/Vol] 34.5 g/dL Normal 32.0 - 36.0 [facility] Comment on above: Performed By: #### C BCDF #### [address] [address] MCV (RBC) [Entitic vol] 95 fL Normal 80 - 100 [facility] Comment on above: Performed By: #### C BCDF #### [address] [address] Monocytes (Bld) [#/Vol] 0.80 10*3/uL Normal 0.05 - 0.8 0 [facility] Comment on above: Performed By: #### C BCDF #### [address] [address] Monocytes/100 WBC (Bld) 10.3 % Normal 2.0 - 10.0 [facility] Comment on above: Performed By: #### C BCDF #### [address] [address] Neutrophils (Bld) [#/Vol] 6.30 10*3/uL High 1.60 - 5 .50 [facility] Comment on above: Result Comment: Perc ent differential counts (%) should be interpreted in the context of the absolute cell counts (cells/L). Performed By: #### C BCDF #### [address] [address] Neutrophils/100 WBC (Bld) 76.2 % Normal 40.0 - 80. 0 [facility] Comment on above: Performed By: #### C BCDF #### [address] [address] Platelets (Bld) [#/Vol] 294 10*3/uL Normal 150 - 450 [facility] Comment on above: Performed By: #### C BCDF #### [address] [address] RBC 4.24 x10E12/L Low 4.50 - 5.90 [facility] Comment on above: Performed By: #### C BCDF #### [address] [address] WBC (Bld) [#/Vol] 8.3 10*3/uL Normal 4.4 - 11.3 [facility] Comment on above: Performed By: #### C BCDF #### [address] [address] CHEST 1 VIEWon 04-21-2022 CHEST 1 VIEW Patient Name: MICHEL FRIAS STUDY: CHEST 1 VIEW INDICATION: pain . COMPARISON: None ACCESSION NUMBER(S): [id number] ORDERING CLINICIAN: ABDIRAHMAN PHAM FINDINGS: Atherosclerotic aorta unchanged. No consolidation, effusion, edema, or pneumothorax. IMPRESSION: No evidence of acute intrathoracic abnormality Electronically signed by: CHONG JARAMILLO MD Normal [facility] COMPREHENSIVE PANELon 2021 Albumin [Mass/Vol] 4.1 g/dL Normal 3.4 - 5.0 [facility] Comment on above: Performed By: #### C MP #### [address] [address] ALP [Catalytic activity/Vol] 53 U/L Normal 33 - 136 [facility] Comment on above: Performed By: #### C MP #### [address] [address] ALT [Catalytic activity/Vol] 16 U/L Normal 10 - 52 [facility] Comment on above: Result Comment: Katarina ents treated with Sulfasalazine may generate falsely decreased results for ALT. Performed By: #### C MP #### [address] [address] Anion gap [Moles/Vol] 10 mmol/L Normal 10 - 20 [facility] Comment on above: Performed By: #### C MP #### [address] [address] AST [Catalytic activity/Vol] 18 U/L Normal 9 - 39 [facility] Comment on above: Performed By: #### C MP #### [address] [address] Bilirubin [Mass/Vol] 0.7 mg/dL Normal 0.0 - 1.2 [facility] Comment on above: Performed By: #### C MP #### [address] [address] Calcium [Mass/Vol] 9.4 mg/dL Normal 8.6 - 10.3 [facility] Comment on above: Performed By: #### C MP #### [address] [address] Chloride [Moles/Vol] 105 mmol/L Normal 98 - 107 [facility] Comment on above: Performed By: #### C MP #### [address] [address] Creatinine [Mass/Vol] 1.04 mg/dL Normal 0.50 - 1.30 [facility] Comment on above: Performed By: #### C MP #### [address] [address] GFR/1.73 sq M.predicted among non-blacks MDRD (S/P/Bld) [Vol rate/Area] 73 mL/min/{1.73_m2} Normal >90 [facility] Comment on above: Result Comment: CALC ULATIONS OF ESTIMATED GFR ARE PERFORMED USING THE 2020 CKD-EPI STUDY REFIT EQUATION WITHOUT THE RACE VARIABLE FOR THE IDMS-TRACEABLE CREATININE METHODS. https://jasn.asnjournals.org/content//ASN.20 77371885 Performed By: #### C MP #### [address] [address] Glucose [Mass/Vol] 122 mg/dL High 74 - 99 [facility] Comment on above: Performed By: #### C MP #### [address] [address] HCO3 (Bld) [Moles/Vol] 27 mmol/L Normal 21 - 32 [facility] Comment on above: Performed By: #### C MP #### [address] [address] Potassium [Moles/Vol] 3.9 mmol/L Normal 3.5 - 5.3 [facility] Comment on above: Performed By: #### C MP #### [address] [address] Protein [Mass/Vol] 6.3 g/dL Low 6.4 - 8.2 [facility] Comment on above: Performed By: #### C MP #### [address] [address] Sodium [Moles/Vol] 138 mmol/L Normal 136 - 145 [facility] Comment on above: Performed By: #### C MP #### [address] [address] Urea nitrogen [Mass/Vol] 14 mg/dL Normal 6 - 23 [facility] Comment on above: Performed By: #### C MP #### [address] [address] CREATINE KINASEon 04-21-2022 CK [Catalytic activity/Vol] 150 U/L Normal 0 - 325 [facility] Comment on above: Performed By: #### C K #### [address] [address] [address] ANGIO CHEST FOR PEon - CT ANGIO CHEST FOR PE Patient Name: MICHEL FRIAS STUDY: CT ANGIO CHEST FOR PE; 04/21/2022 3:00 pm INDICATION: stable . COMPARISON: None. ACCESSION NUMBER(S): [id number] ORDERING CLINICIAN: ABDIRAHMAN PHAM TECHNIQUE: Helical data acquisition of the chest was obtained after IV injection of 50 ml of Omnipaque 350. Images were reformatted in axial, coronal, and sagittal planes. 3D reconstructed MIPS volumetric images were also generated at an independent workstation and reviewed. FINDINGS: POTENTIAL LIMITATIONS OF THE STUDY: None HEART AND VESSELS: No discrete filling defects within the main pulmonary artery or its branches. There is mild dilatation of the ascending aorta measuring 3.8 cm in diameter. There is mild atherosclerotic calcification throughout, but there is no dissection. There is moderate atherosclerotic calcification of the visualized upper abdominal aorta. There is moderate coronary artery atherosclerotic calcification primarily involving the LAD. The cardiac chambers are not enlarged. MEDIASTINUM AND INO, LOWER NECK AND AXILLA: The visualized thyroid gland is within normal limits, the esophagus appears unremarkable. No evidence of thoracic lymphadenopathy by CT criteria. LUNGS AND AIRWAYS: A 5 mm peripheral nodule in the right lower lung on image 113 of series 4 measuring 5 mm is probably an intrapulmonary node and, likely benign. No further follow-up is required, however, if the patient has high risk factors for primary lung malignancy, follow-up noncontrast CT scan chest in 12 months may be obtained. (Heriberto Young al., Guidelines for management of incidental pulmonary nodules detected on CT images: From the Fleischner Society 2017, Radiology. 2017 Apr;284 (1):228-243.) FLEISCHNER.ACR.IF.1 The lungs otherwise are clear, with mild dependent atelectasis in the right lower lung posteriorly. UPPER ABDOMEN AND OTHER FINDINGS: The visualized subdiaphragmatic structures demonstrate no remarkable findings. CHEST WALL AND OSSEOUS STRUCTURES: There are no suspicious osseous lesions. IMPRESSION: 1. Dilatation of the ascending aorta, without dissection. 2. The pulmonary arteries are unremarkable without evidence of pulmonary emboli. 3. 5 mm right lung nodule as described. Electronically signed by: DELVIS FLETCHER MD Normal [facility] D-DIMER, VTE EXCLUSIONon D-DIMER, VTE EXCLUSION 524 ng/mL FEU Abnormal < or = 500 [facility] Comment on above: Result Comment: The VTE Exclusion D-Dimer assay is reported in ng/mL Fibrinogen Equivalent Units (FEU). Per manufacturers instructions for use, a value of less than 500 ng/mL (FEU) may help to exclude DVT or PE in outpatients when the assay is used with a clinical pretest probability assessment. ([facility] must utilize and document eCalc Wells Score Deep Vein Thrombosis Risk for DVT exclusion only; Emergency Department should utilize Guidelines for Emergency Department Use of the VTE Exclusion D-Dimer and Clinical Pretest probability assessment model for DVT or PE exclusion.) Performed By: #### D IMEX #### [place] [address] Electrocardiogram 12 Leadon 04-21-2022 Electrocardiogram 12 Lead Ventricular Ra te 93 Atrial Rate 93 P-R Interval 152 QRS Duration 86 Q-T Interval 334 QTC Calculation(Bazett) 415 P [place] 53 R [place] 4 T [place] 51 QRS Count 15 Q Onset 225 P Onset 149 P Offset 204 T Offset 392 QTC Fredericia 386 Diagnosis Class Normal Diagnosis Please see physician note for formal interpretation confirmed by Scribe Confirmed by Michoacano Le () on 04/22/2022 9:27:[address] [facility] LACTATEon 04-21-2022 Lactate [Moles/Vol] 1.0 mmol/L Normal 0.4 - 2.0 [facility] Comment on above: Result Comment: Yesenia puncture immediately after or during the administration of Metamizole may lead to falsely low results. Testing should be performed immediately prior to Metamizole dosing. Performed By: #### L ACT ####[address] [address] MAGNESIUMon 04-21-2022 Magnesium [Mass/Vol] 2.16 mg/dL Normal 1.60 - 2.40 [facility] Comment on above: Performed By: #### M G ####[address] [address] Provider Note - ED v3on 03-26 Provider Note - ED v3 Provider Note: Chart Review: ED NOTES ED NOTES: 82-year-old male presents with chief complaint of right-sided chest pain. Patient states that the pain started 1 to 2 days ago. Pain is in a certain area involving the right upper anterior chest wall. Patient denies any palpitations, shortness of breath, nausea, vomiting or diarrhea with presenting complaint. I was really unable to reproduce the pain with direct pressure to the area. Patient is somewhat concerned because he just turned 82. I went over all the results with the patient and indicated that the cardiac work-up was normal. I feel the pain is either pleurisy or costochondritis. I did indicate to the patient there is slight dilatation of the ascending aorta without any signs of dissection and this needs to be followed, especially if he develops significant pain. Patient did receive an IV dose of Toradol and symptoms resolved. Patient is improved and stable upon discharge. Have instructed him to follow-up with his family medical doctor in 1 to 2 days and if symptoms worsen he is to return. Patient is receptive to that. HISTORY OF PRESENTING ILLNESS MICHEL is a 82 year old Male and was seen by me at 21-Apr-2022 12:07 for a chief complaint of chest pain (Patient to ED reference non radiating chest pressure. Patient stated he started having right sided chest pressure after 18 rounds of golf. He states he has pressure and no pain. he never had any pain just pressure. 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 patient states no headache or blurred vision.) . The historian is the patient. Triage Information: Most recent Vital Sign Value Date Temp (F): 99 04-21-2022 12:09 Temp (C): 37.2 04-21-2022 12:09 Heart Rate (beats/min): 88 04-21-2022 12:09 Respirations (breaths/min): 13 04-21-2022 12:09 SpO2 (%): 94 04-21-2022 12:09 BP Systolic (mm Hg): 135 04-21-2022 12:09 BP Diastolic (mm Hg): 84 04-21-2022 12:09 PAST MEDICAL HISTORY ALLERGIES/INTOLERANCE S: No Known Allergies HEALTH HISTORY: No documented data. OUTPATIENT MEDICATIONS: Home Medications Review Status for Reconciliation: Complete Med Status: Patient Currently Takes Medications Drug Name: ATORVASTATIN CALCIUM 10 MG TABS Instructions: 1 tab(s) orally once a day SIGNIFICANT EVENTS: No documented data. REVIEW OF SYSTEMS CARDIOVASCULAR: POSITIVE for: chest pain All other systems reviewed and are negative PHYSICAL EXAM CONSTITUTIONAL: Well appearing, well nourished, awake, alert, oriented to person, place, time/situation and in no apparent distress. HENMT: Airway patent, ears with clear tympanic membranes bilaterally. Nasal mucosa clear. Mouth with normal mucosa. Throat has no vesicles, no oropharyngeal exudates and uvula is midline. Face with no lymph node enlargement. EYES: Clear bilaterally, pupils equal, round and reactive to light. CARDIOVASCULAR: Normal rate, regular rhythm. Heart sounds S1, S2. No murmurs, rubs or gallops. PMI non-displaced. RESPIRATORY: Breath sounds clear and equal bilaterally. GASTROINTESTINAL: Abdomen soft, non-distended, no rebound, no guarding. Bowel sounds normal in all 4 quadrants. GENITOURINARY: No discharge, no lesions. MUSCULOSKELETAL: Spine appears normal, range of motion is not limited, no muscle or joint tenderness. NEUROLOGICAL: Alert and oriented, no focal deficits, no motor or sensory deficits. SKIN: Skin normal color for race, warm, dry and intact. No evidence of trauma. Several large abrasions to the left lateral calf PSYCHIATRIC: Alert and oriented to person, place, time/situation. normal mood and affect. No apparent risk to self or others. HEME/LYMPH: No adenopathy or splenomegaly. No cervical, supraclavicular or inguinal lymphadenopathy. CRITICAL CARE RESULTS: Recent Lab Results: I have reviewed these laboratory results: Troponin I, High Sensitivity Trending View [id number] 14:36:00 21-Apr-2022 12:45:00 Troponin I, High Sensitivity5 5 Complete Blood Count + Differential 21-Apr-2022 12:45:00 ResultValue White Blood Cell Count 8.3 Red Blood Cell Count 4.24 L HGB 13.9 HCT 40.3 L MCV 95 MCHC 34.5 PLT 294 RDW-CV 13.1 Neutrophil % 76.2 Lymphocyte % 12.1 Monocyte % 10.3 Eosinophil % 0.7 Basophil % 0.7 Neutrophil Count 6.30 H Lymphocyte Count 1.00 Monocyte Count 0.80 Eosinophil Count 0.10 Basophil Count 0.10 Comprehensive Metabolic Panel 21-Apr-2022 12:45:00 ResultValue Glucose, Serum 122 H NA 138 K 3.9 CL 105 Bicarbonate, Serum 27 Anion Gap, Serum 10 BUN 14 CREAT 1.04 GFR Male 73 Calcium, Serum 9.4 ALB 4.1 ALKP 53 T Pro 6.3 L T Bili 0.7 Alanine Aminotransferase, Serum 16 Aspartate Transaminase, Serum 18 Brain Natriuretic Peptide 21-Apr-2022 12:45:00 ResultValue Brain Natriuretic Peptide 37 Creatine Kinase, Level 21-Apr-2022 12:45:00 ResultValue Creatine Kinase, Level 150 Magnesium, Serum (more content not included)... Normal [facility] Risk Screen - Adult [facility] 04-21-2022 Risk Screen - Adult Emergency Preferred Language: Preferred Language: Preferred Language for Discussing Health Care (patient/designee)Bobbi craft Advanced Directives: Advance Directive/DNRyes Advance Directive typeLiving Will, Durable Power of Poultry Picking Machine Tender for Healthcare Living Will AvailabilityLiving Will not available now Durable Power of Poultry Picking Machine Tender AvailabilityDPOA not available now Family Violence Adult: Abuse Screen: Are you or have you been threatened or abused physically, emotionally, or sexually by anyoneno Learning Assessment (Patient): Learning Assessment (Patient): Patient is Able to be Assessed for Learningyes Factors Influencing Readiness to Learnnone Factors that Impact Ability to Learnvisual problems Devices/Methods Used to Communicateglasses Learning Preferencesverbal instruction; written material Cultural Considerationsnone Developmental Considerationsnone Druze Considerationsnone Learning Assessment (Other Learner): Learning Assessment (Other Learner): Other learner availableno Pressure Injury/TB/Substance: Pressure Injury: Do you have a coughno Smoking Statusnever smoker Alcohol Usedenies Drug Usedenies Admission Risk Screen: Significant IndicatorsComplete CAGE: CAGE: Is this an injured patient at a Trauma Center ([facility]/[place]/[facility]/[place]): no Electronic Signatures: Tete Page (RN) (Signed 21-Apr-2022 13:11) Authored: Preferred Language, Advanced Directives, Family Violence Adult, Learning Assessment (Patient), Learning Assessment (Other Learner), Pressure Injury/TB/Substance, Pressure Injury, CAGE Last Updated: 21-Apr-2022 13:11 by Tete Page (HARRISON) Normal [facility] TROPONIN I, HIGH SENSITIVITY on 04-21-2022 TROPONIN I, HIGH SENSITIVITY 5 ng/L Normal 0 - 20 [facility] Comment on above: Result Comment: . Less than 99th percentile of normal range cutoff- Female and children under 18 years old <14 ng/L; Male <21 ng/L: Negative Repeat testing should be performed if clinically indicated. . Female and children under 18 years old 14-50 ng/L; Male 21-50 ng/L: Consistent with possible cardiac damage and possible increased clinical risk. Serial measurements may help to assess extent of myocardial damage. . >50 ng/L: Consistent with cardiac damage, increased clinical risk and myocardial infarction. Serial measurements may help assess extent of myocardial damage. . NOTE: Children less than 1 year old may have higher baseline troponin levels and results should be interpreted in conjunction with the overall clinical context. . NOTE: Troponin I testing is performed using a different testing methodology at [facility] than at other [facility]. Direct result comparisons should only be made within the same method. Performed By: #### T [facility] #### [place] [address] TROPONIN I, HIGH SENSITIVITY 5 ng/L Normal 0 - 20 [facility] Comment on above: Result Comment: . Less than 99th percentile of normal range cutoff- Female and children under 18 years old <14 ng/L; Male <21 ng/L: Negative Repeat testing should be performed if clinically indicated. . Female and children under 18 years old 14-50 ng/L; Male 21-50 ng/L: Consistent with possible cardiac damage and possible increased clinical risk. Serial measurements may help to assess extent of myocardial damage. . >50 ng/L: Consistent with cardiac damage, increased clinical risk and myocardial infarction. Serial measurements may help assess extent of myocardial damage. . NOTE: Children less than 1 year old may have higher baseline troponin levels and results should be interpreted in conjunction with the overall clinical context. . NOTE: Troponin I testing is performed using a different testing methodology at [facility] than at other [facility]. Direct result comparisons should only be made within the same method. Performed By: #### T [facility] #### [address] [place] [address] Triage - EDon 04-21-2022 Triage - ED Quick Triage: The patient and/or guardian verbally acknowledges placement for services into the following (when Urgent Care Service hours are operating):emergency department Chart Review: ARRIVAL INFORMATION Mode of Arrival: private vehicle CHIEF COMPLAINT MICHEL FRIAS is a Male patient with a chief complaint of chest pain (Patient to ED reference non radiating chest pressure. Patient stated he started having right sided chest pressure after 18 rounds of golf. He states he has pressure and no pain. he never had any pain just pressure. 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 patient states no headache or blurred vision.). Onset of the Complaint: 20-Apr-2022 14:00 Triage Date/Time: 21-Apr-2022 12:10 SUSANNAH: 3 Pain Rating (0-10): 0 = None Vital Signs: Temperature: 99.0F ( 37.2C) taken temporal Blood Pressure: 135/84 Mean: Heart Rate: 88 Respiratory Rate: 13 Pulse Oximetry: 94% on room air, no respiratory support. Height: 5 feet 9.00 inches. 175.2 CM Weight: 162.2 pounds. Calculated 73.6 kg. (stated) Calculated BMI (kg/m2): 23.977 Calculated BSA (m2) 1.89 [place] Coma Scale: Best Eye Response: (E4) spontaneous Best Motor Response: (M6) obeys commands Best Verbal Response: (V5) oriented [place] Score: 15 Krish Assessment Qualifiers: patient not sedated/intubated Cough lasting greater than 3 weeks: no Patient immunocompromised related to: cancer Allergies: no Mask applied: yes Patient has homicidal thoughts: no Symptoms Are Negative For: anxiety, chills, diaphoresis, dyspnea, headache, loss of consciousness, nausea, numbness, pain, tingling and weakness Risk Screens Suicide Risk Screen In the Past Month: Have you wished you were or wished you could go to sleep and not wake up no In the Past Month: Have you had any actual thoughts of killing yourself no In Your Lifetime: Have you ever done anything, started to do anything, or prepared to do anything to end your life no Mendoza Fall Scale Screening Has the patient fallen before (or is the patient in the ED as a result of a fall) has not had a fall Does the patient have an impaired gait does not have impaired gait Is the patient cognitively impaired not cognitively impaired Interventions: Mendoza Fall Interventions: LOW INTERVENTIONS: *patient oriented to surroundings and call system, * patient/family falls education completed and documented, *patients fall status communicated during bedside handoff, *whiteboard updated, *mode of toileting discussed with patient, *bed in low position with brakes locked, *call light in reach, * non-skid footwear TRAVEL HISTORY Travel History Coronavirus Screening: no exposure or symptoms Travel Exposure History: NO travel to International locations in the past 30 days PAIN Pain Scale Used: MAYUR Pain Rating (0-10): 0 = None Past Medical History: Past Medical History Reviewedyes Electronic Signatures: Tevin Otto (EMT-P) (Signed 21-Apr-2022 12:15) Authored: Quick Triage, Risk Screens, Pain, Travel History, Chart Review, Scores Tete Page (HARRISON) (Signed 21-Apr-2022 13:10) Authored: Quick Triage, Chart Review, Past Medical History Last Updated: 21-Apr-2022 13:10 by Tete Page (HARRISON) [facility] Vital Signs Date Time Vital Sign Value Performing Clinician Facility 04-07-2025 10:51-0400 Body temperature 98.01 [degF] Manan Lloyd IRIDOLOGIST-CLINICAL SALES CONSULTANT Work Phone: [facility] 04-07-2025 10:51-0400 Diastolic blood pressure 80 mm[Hg] Manan Lloyd IRIDOLOGIST-CLINICAL SALES CONSULTANT Work Phone: [facility] 04-07-2025 10:51-0400 Heart rate 73 /min Manan Lloyd IRIDOLOGIST-CLINICAL SALES CONSULTANT Work Phone: [facility] 04-07-2025 10:51-0400 Respiratory rate 14 /min Manan Lloyd IRIDOLOGIST-CLINICAL SALES CONSULTANT Work Phone: [facility] 04-07-2025 10:51-0400 SaO2% (BldA) [Mass fraction] 96 % Manan Lloyd IRIDOLOGIST-CLINICAL SALES CONSULTANT Work Phone: [facility] 04-07-2025 10:51-0400 Systolic blood pressure 151 mm[Hg] Manan Lloyd IRIDOLOGIST-CLINICAL SALES CONSULTANT Work Phone: [facility] 04-21-2022 18:30-0400 Body temperature 98.6 [degF] Text Entry Free [facility] 04-21-2022 18:30-0400 Diastolic blood pressure 89 mm[Hg] Text Entry Free [facility] 04-21-2022 18:30-0400 Heart rate 72 /min Text Entry Free [facility] 04-21-2022 18:30-0400 Respiratory rate 18 /min Text Entry Free [facility] 04-21-2022 18:30-0400 SaO2% (BldA) [Mass fraction] 96 % Text Entry Free [facility] 04-21-2022 18:30-0400 Systolic blood pressure 130 mm[Hg] Text Entry Free [facility] 04-21-2022 14:09-0400 Body height 175.2 cm Text Entry Free [facility] 04-21-2022 14:09-0400 Body weight 73.6 kg Text Entry Free [facility] Encounters Encounter Date Encounter Type Care Provider Facility Start: 04-09-2025 End: 04-09-2025 ambulatory No Primary Care Physician [facility] Work Phone: Start: 04-09-2025 End: 04-09-[address] Diana Esquivel MD -[facility] [place] Work Phone: Start: 04-09-2025 End: 04-09-2025 ambulatory Diana Esquivel Facility:[facility] Start: 04-07-2025 End: 04-07-2025 Patient encounter procedure Manan Lloyd IRIDOLOGIST-CLINICAL SALES CONSULTANT Work Phone: [facility] Comment on above: Herpes zoster with o ther complication (Primary Dx); Cellulitis of left shoulder Start: 04-07-2025 End: 04-07-2025 ambulatory [facility] Start: 04-21-2022 End: 04-21-2022 Emergency department patient visit Abdirahman Pham [facility] Emergency 02 Procedures Date Procedure Procedure Detail Performing Clinician Start: 04-09-2025 Assay of prostate sp ecific antigen total No Primary Care Physician Comment on above: This test was perfor med using the [employer] tPSA method. Measured values of a patient sample can vary depending on the testing procedure used. PSA values determined on patient samples by different testing procedures cannot be used interchangeably. If there is a change in PSA assays while monitoring therapy, sequential testing should be performed to confirm baseline values. Start: 04-09-2025 Electrophoresis: [id number] No Primary Care Physician Start: 04-09-2025 Electrophoresis: [id number] No Primary Care Physician Start: 04-09-2025 Electrophoresis: jem ma globulin No Primary Care Physician Start: 04-09-2025 Urnls dip stick/tabl et reagent auto microscopy No Primary Care Physician Start: 04-09-2025 Varicella-zoster vir us antibody IgG measurement No Primary Care Physician Comment on above: Please note refere nce interval changeA Reactive result is considered evidence of immunity toVZV. Reactive indicates that VZV IgG was detectedconsistent with previous infection and/or vaccination.A Non Reactive result indicates that VZV IgG was notdetected suggesting that immunity has not been acquired. Start: 04-09-2025 X-ray of chest, PA a nd lateral views No Primary Care Physician Start: 04-21-2022 End: 04-21-2022 EKG impression Abdirahman Lopezft Plan of Treatment Date Care Activity Detail Author Start: 07-24-2025 End: 07-24-2025 Patient encounter procedure 07/24/2025 2:20 PM EDT Office Visit [facility] [address] [id number] Haily Clark MD [address] [address] [facility] Start: 06-25-2025 Influenza vaccination Influenza Vaccine (Season Ended) [facility] Start: 06-25-2024 COVID-19 Vaccine ( season) COVID-19 Vaccine ( season) [facility] Start: 2017 RSV High Risk: (Elderly (60+) or Population) (1 - 1-dose 75+ series) RSV High Risk: (Elderly (60+) or Population) (1 - 1-dose 75+ series) [facility] Start: 02-17-1992 Pneumococcal vaccination Pneumococcal Vaccine (1 of 1 - PCV) [facility] Start: 02-17-1992 Zoster Vaccines (1 of 2) Zoster Vaccines (1 of 2) [facility] Start: 02-17-1964 DTaP/Tdap/Td Vaccines (1 - Tdap) DTaP/Tdap/Td Vaccines (1 - Tdap) [facility] Start: 1940 Annual wellness visit Welcome to Medicare Visit [facility] Start: 1940 Lipid panel Lipid Panel [facility] Payers Date Payer Category Payer Self-pay 2024 Medicare (Managed Care) [facility]IC[facility] [id number] 2024 Medicare [id number] 1940 Unknown [id number] Unknown [facility] Unknown [id number] Social History Date Type Detail Facility [facility] Tobacco smoking consumption unknown [facility] Start: 04-07-2025 Tobacco smoking status NHIS Never smoked tobacco [facility] Work Phone: Start: 04-07-2025 Tobacco use and exposure Smokeless tobacco non-user [facility] Work Phone: Start: 04-07-2025 History of Social function [facility] Work Phone: Start: 04-07-2025 Tobacco use panel [facility] Work Phone: Start: 1940 Sex assigned at Not on file [facility] Work Phone: Start: 1940 Sex Assigned At Male [facility] Radiology Diagnostic study note 04-10-2025 Note Date & Type Note Facility 04-10-2025 Radiology Diagnostic study note [facility] Imaging Services [address] [place] [address] [id number] Chest PA and Lateral MR#: [id number] Acct: [id number] Name: MICHEL FRIAS Rep #: [id number] : 1940 M 85 From: Juliet Carvajal MD PCP: Care Physician,No Primary Status: REG CLI Study:Chest PA and Lateral Date of Exam: 04/09/25 Exam# [id number] Ordering Dr: Edson Esquivel MD PROCEDURE: CHEST PA AND LATERAL 04/09/2025 REASON FOR EXAM: SKIN/ PAIN TECHNIQUE: CHEST PA AND LATERAL COMPARISON: None. FINDINGS: Elevation of the left hemidiaphragm secondary to moderate gaseous distention of the splenic flexure of the colon. Bilateral basilar atelectatic pulmonary changes. There is no demonstrated pleural abnormality. Enlarged cardiac silhouette. Normal mediastinum and ino. Normal visualized pulmonary arteries. Atheromatous plaques of the visualized aortic arch and descending thoracic aorta. Diffuse spondylosis of the visualized thoracic spine. Normal visualized ribs, clavicles. Degenerative joint disease. There is no demonstrated abnormality of the visualized soft tissue structures ofthe upper abdomen. RAD/Chest PA and Lateral IMPRESSION: Elevation of the left hemidiaphragm secondary to moderate gaseous distention of the splenic flexure of the colon. Bilateral basilar atelectatic pulmonary changes. [facility] CC: Dr. Diana Esquivel MD; No Primary Care Physician ~ Building Construction Estimator: Signed [facility] History of Present illness Narrative 04-07-2025 FRANKLIN Salcedo - 04/07/2025 10:45 AM EDT Note Date & Type Note Facility 04-07-2025 History of Present illness Narrative 85 y.o. male presents for evaluation of painful and itchy rash to left chest and extending over shoulder to left scapula that began 1 week ago. States has been popping blisters and using liquid band aid. Has noticed purulent drainage and increased redness to rash. Denies fever, chest pains, SOB, fatigue, body aches or any other associated symptoms. Unsure if had chicken pox as a child. Has never been vaccinated for shingles. Has appointment with dermatology in a few days. No other complaints. Vitals: 04/07/25 1051 BP: 151/80 Pulse: 73 Resp: 14 Temp: 36.7 C (98 F) SpO2: 96% RX Allergies[1] Medication Documentation Review Audit Reviewed by FRANKLIN Salcedo (Nurse Practitioner) on 04/07/25 at 1101 Medication Order Taking? Sig Documenting Provider Last Dose Status atorvastatin (Lipitor) 10 mg tablet [id number] Yes Take by mouth. Historical Provider, Active Medical History[2] Surgical History[3] ROS See HPI Physical Exam Vitals and nursing note reviewed. Skin: General: Skin is warm. Findings: Erythema and rash (vesicular mildly erythematous rash to left chest extending up to left shoulder/neck and onto scapula, area to left side of neck with purulent drainage and erythema concerning for cellulitis/bacterial infection) present. Neurological: General: No focal deficit present. Mental Status: He is oriented to person, place, and time. Psychiatric: Mood and Affect: Mood normal. Behavior: Behavior normal. Assessment/Plan/MDM Michel was seen today for rash. Diagnoses and all orders for this visit: Herpes zoster with other complication (Primary) - valACYclovir (Valtrex) 1 gram tablet; Take 1 tablet (1,000 mg) by mouth 2 times a day for 10 days. Cellulitis of left shoulder - doxycycline (Adoxa) 100 mg tablet; Take 1 tablet (100 mg) by mouth 2 times a day for 7 days. Take with a full glass of water and do not lie down for at least 30 minutes after Encouraged patient to continue with dermatology appt but begin rx today. DSD replaced today. Patient's clinical presentation is otherwise unremarkable at this time. Patient is discharged with instructions to follow-up with primary care or seek emergency medical attention for worsening symptoms or any new concerns. I did personally review Michel's past medical history, surgical history, social history, as well as family history (when relevant). In this case, I also oversaw the his drug management by reviewing his medication list, allergy list, as well as the medications that I prescribed during the UC course and/or recommended as an out-patient (including possible OTC medications such as acetaminophen, NSAIDs , etc). After reviewing the items above, I did look at previous medical documentation, such as recent hospitalizations, office visits, and/or recent consultations with PCP/specialist. SDOH: Another factor that I considered in Michel's care was his Social Determinants of Health (SDOH). During this UC encounter, he did not have social determinants of health. Those SDOH influencing Michel's care are: none Manan Lloyd CNP [facility] [phone] [1] No Known Allergies [2] No past medical history on file. [3] No past surgical history on file. documented in this encounter [facility] Work Phone: Evaluation note Note Date & Type Note Facility Evaluation note Diagnosis Herpes zoster with other complication- Primary Cellulitis of left shoulder documented in this encounter [facility] Work Phone: Evaluation note Note Date & Type Note Facility Evaluation note No assessment information availa ble [facility] Work Phone: Reason for referral (narrative) Note Date & Type Note Facility Reason for referral (narrative) No reason for referral information available [facility] Work Phone: Reason for Referral * PleurisyPleurisy Summary Purpose Family History No Family History Records FoundNo Family History Records FoundNo Family History Records FoundNo Family History Records Found Advance Directives No Advanced Directives Records FoundNo Advanced Directives Records FoundNo Advanced Directives Records FoundNo Advanced Directives Records Found Chief Complaint and Reason for Visit Chief Complaint Admit Date SKIN April 09, 2025 2:44 pm Additional Source Comments <item> Privacy Markings (unrecogniz ed section and content) Section Author: Shobha Tirado PROHIBITION ON REDISCLOSURE OF CONFIDENTIAL INFORMATION This notice accompanies a disclosure of information concerning a client made to you with the consent of such client. (unrecognized sect ion and content) No Status Records FoundNo Status Records FoundNo Status Records FoundNo Status Records Found INFORMATION SOURCE (unrecogn ized section and content) DATE CREATED AUTHOR 04/23/2022 [facility] DATE CREATED AUTHOR AUTHOR'S ORGANIZ ATION 04/28/2022 [facility] DATE CREATED AUTHOR AUTHOR'S ORGANIZ ATION 04/09/2025 [facility] DATE CREATED AUTHOR AUTHOR'S ORGANIZ ATION 04/15/2025 [facility] Reason for Visit (unrecogniz ed section and content) Reason Comments Rash On chest area, back x 1 week Care Teams (unrecognized sec tion and content) [employer] Professional Relationship Specialty Start Date End Date Luba Polk TrevonDO [address] [phone] PCP - [employer] PCP 03/25/25 Haily Clark MD [address] [address] PCP - General Family Medicine 04/07/25 Team Status: Active Member Role Status Dates No Primary Care Physician Primary Care Provider Active Team Status: Inactive Member Role Status Dates No Primary Care Physician Primary Care Provider Active Start: April 09, 2025 End: April 09, 2025 Dr. Diana Esquivel MD Attending Provider Active S tart: April 09, 2025 End: April 09, 2025 Dr. Diana Esquivel MD Referring Provider Active S tart: April 09, 2025 End: April 09, 2025 Goals (unrecognized section and content) Goals may be documented in a n alternate section FOR RECORDS PERTAINING TO PATIENTS WHO ARE OR HAVE BEEN ENROLLED IN A CHEMICAL DEPENDENCY/SUBSTANCEABUSE PROGRAM, SOME INFORMATION MAY BE OMITTED. This clinical summary was aggregated from multiple sources. Caution should be exercised in using it in the provision of clinical care. This summary normalizes information from multiple sources, and as a consequence, information in this document may materially change the coding, format and clinical context of patient data. In addition, data may be omitted in some cases. CLINICAL DECISIONS SHOULD BE BASED ON THE PRIMARY CLINICAL RECORDS. [employer] provides no warranty or guarantee of the accuracy or completeness of information in this document.
[2025-10-18 12:08] LABS: Albumin 4.2 g/dL (2.9-4.4); Gamma Globulin 0.8 g/dL (0.4-1.8); IMMUNOFIXATION RESULT,S Comment: (.); Immunoglobulin A 151 mg/dL (61-437); Immunoglobulin G 765 mg/dL (603-1613); Immunoglobulin M 73 mg/dL (15-143); PROEL- TOTAL PROTEIN 6.8 g/dL (6.0-8.5)
== END | disposition home or self-care (01) ==
LOC: MTLAB 10:53
PROVIDERS: PCP Family Medicine; Referring Provider Family Medicine; Visit Provider Family Medicine
DX: D47.2 Monoclonal gammopathy (principal)
CPT/HCPCS: 36415; 82784; 84165; 86334